=== PATIENT | male | born 1990 ===

== ENCOUNTER 2024-06-12 14:24 | Emergency (ER) | payer SELFPAY ==
[2024-06-12] MEDS: ACETAMINOPHEN TAB 500 MG TAB PO STA (15:01)
[2024-06-12] MEDS: IBUPROFEN 800 MG TAB PO STA (15:01)
--- NOTE | 2024-06-12 15:10 | XR ---
EXAMINATION TYPE: XR wrist complete LT DATE OF EXAM: 06/12/2024 3:03 PM CLINICAL INDICATION: Male, 33 years old with history of Fall; COMPARISON: None TECHNIQUE: XR wrist complete LT; examined in the Frontal, navicular, lateral, and oblique. FINDINGS/IMPRESSION: Acute fracture through the scaphoid without significant displacement. There are a few tiny fragments present next the fracture line. There is associated soft tissue swelling. [facility], , 06/12/2024 3:07 PM
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
[2024-06-12 15:49] VITALS: BP 143/90; PULSE 62; RESP 18; TEMP 97.7
== END 2024-06-12 15:51 | disposition home or self-care (01) ==
LOC: EC 14:24
CPT/HCPCS: 29125; 99283